=== PATIENT | male | born 1980 | race Caucasian/White ===

== ENCOUNTER 2023-05-01 06:36 | Day surgery (SDC) | payer OTHER ==
[2023-04-30 09:32] VITALS: BMI 23.7
[2023-05-01] MEDS ORDERED: PROPOFOL 40 ML ONE (08:36)
[2023-05-01] MEDS ORDERED: Lidocaine 1% PF 5 ML VIAL ONE (08:36)
[2023-05-01] MEDS ORDERED: PHENYLEPHRINE-NS 100 MCG/ML 10 ML SYRINGE ONE (08:42)
[2023-05-01] MEDS ORDERED: PROPOFOL 20 ML ONE (09:17)
== END 2023-05-01 09:54 | disposition home or self-care (01) ==
LOC: CSHSDC 06:36
PROVIDERS: ATTEND Internal Medicine Gastroenterology
PROC: 0DBL8ZZ Excision of Transverse Colon, Via Natural or Artificial Opening Endoscopic (ICD-10-PCS; principal; 2023-05-01)
DX: Z12.11 Encounter for screening for malignant neoplasm of colon (principal); D12.3 Benign neoplasm of transverse colon; K64.9 Unspecified hemorrhoids; K62.89 Other specified diseases of anus and rectum; E11.9 Type 2 diabetes mellitus without complications; E03.9 Hypothyroidism, unspecified; Z79.899 Other long term (current) drug therapy; Z79.890 Hormone replacement therapy
CPT/HCPCS: 88305; J2704